=== PATIENT | male | born 1950 | race Caucasian/White ===

== ENCOUNTER 2016-08-23 10:11 | Emergency (ER) | payer OTHER ==
[2016-08-23 10:24] VITALS: RESP 18; TEMP 99
[2016-08-23] MEDS ORDERED: IBUPROFEN 600 MG TAB PO ONE (10:30)
--- NOTE | 2016-08-23 10:40 | EDPHY ---
HPI/HX/ROS/PE/MDM Narrative: CHIEF COMPLAINT: Fall, right shoulder HPI: The patient is a 66-year-old male with no significant past medical history. He is not on anticoagulants. Approximately 1 and 0.5 hours ago, while at work, patient slipped on a loose board while standing on the roof of a house he was building. This caused him to fall off of the roof. He partially arrested his fall by holding onto the gutter and a co-worker attempted to catch him. He fell primarily on his right back. He denies head injury or neck injury. He did not lose consciousness. EMS evaluated him at seen and he refused transport. He drove himself to the ER. He complains of pain to his right shoulder and right flank. He denies numbness, weakness, tingling, shortness of breath or extremity pain. REVIEW OF SYSTEMS: Aside from elements discussed in the HPI, a comprehensive 10-point review of systems was reviewed and is negative. PMH: None significant. SOCIAL HISTORY: Owns a construction business, denies alcohol or drug abuse. PHYSICAL EXAM: General:Patient is alert, in no acute distress. Head: Normocephalic, atraumatic. ENT:Eyes are normal to inspection. ENT inspection normal. Neck: Normal inspection. Full range of motion. Respiratory:No respiratory distress. Breath sounds normal bilaterally. Cardiovascular: Regular rate and rhythm. Strong peripheral pulses. Normal cap refill. Abdomen:The abdomen is nontender to palpation. There are no peritoneal signs. There are normal bowel sounds. Back: Small abrasion in the right flank is noted. No midline tenderness to palpation. No pain with palpation. Skin: Normal color. No rash. Warm and dry. Extremities: Diffuse tenderness in the right shoulder. No focal bony tenderness along the clavicle or humerus.Light touch sensation and motor function is preserved in the axillary, median, radial and ulnar nerve distributions. There is a 2+ radial pulse with brisk cap refill. Neuro: Oriented x3. Normal motor function. Normal sensory function. ED Course: I discussed treatment options with the patient. He was very hesitant to undergo a CT scan or blood work, so we proceeded with x-rays. While in Radiology, I was informed that the patient had what they described as a vasovagal episode in which he became diaphoretic, lightheaded and nearly passed out. On my examination at 11:07 a.m., the patient is back in his bed and is comfortable. He is denying any new source of pain. His vital signs are stable. Given this episode, I convinced the patient to allow us to proceed with blood work and CT scan of his chest, abdomen and pelvis. CT of the abdomen pelvis was read by Dr. Fontaine as positive for nondisplaced pubic ramus fracture as well as some surrounding hematoma without evidence of solid organ injury or spinal injury. MDM: This patient presents primarily with right shoulder as well as flank pain following a fall. CT of chest, abdomen and pelvis reveals a nondisplaced pubic ramus fracture and associated hematoma. There is no evidence of solid organ injury. On re-evaluation, the patient is comfortable, his exam is unchanged his vital signs remained normal. I think he is appropriate for outpatient management. I will prescribe him pain medicine and give him precautions. I explained to him that we do see some microscopic hematuria and that he will need to follow up with Urology for this, as well as Orthopedics for his nondisplaced pelvis fracture. - Data Points Imaging Results: Imaging Impressions Chest X-Ray 08/23/16 10:29 Impression: 1. No pneumonia. 2. Left upper lobe 5 mm nonspecific pulmonary nodule. Recommendation: CT chest. Findings and recommendations discussed with Emergency Department physician, Jesus Huitron MD at 1201 hour, 08/23/2016. Final report concurs with initial preliminary interpretation. Shoulder X-Ray 08/23/16 10:29 Impression: 1. Anatomically variation versus buckle fracture body of scapula. 2. No dislocation or AC separation. Lumbar Spine X-Ray 08/23/16 10:30 Impression: Scoliosis and spinal degenerative changes are seen without acute fracture identified.. Laboratory Results: Laboratory Results 08/23/16 11:20 08/23/16 08/23/16 08/23/16 12:00 11:20 11:20 WBC RBC Hgb POC Hgb Hct POC Hct MCV MCH MCHC RDW Plt Count MPV Neut % (Auto) Lymph % (Auto) [place] % (Auto) Eos % (Auto) Baso % (Auto) Nucleat RBC Rel Count Absolute Neuts (auto) Absolute Lymphs (auto) Absolute Monos (auto) Absolute Eos (auto) Absolute Basos (auto) Absolute Nucleated RBC Immature Gran % Immature Gran # PT 13.5 SEC SEC (12.0-15.0) INR 1.06 (0.83-1.16) APTT 28.9 SEC SEC (23.0-38.0) POC Sodium POC Potassium POC Chloride POC BUN POC Creatinine POC Glucose Troponin I < 0.012 ng/mL ng/mL (0-0.034) Urine RBC 5-10 /hpf H /hpf (0-3) Urine WBC 1-3 /hpf /hpf (0-3) Ur Epithelial Cells 1+ /lpf /lpf (NONE-1+) Urine Bacteria TRACE /hpf H /hpf (NONE SEEN) Urine Mucus 2+ /lpf H /lpf (NONE-1+) 08/23/16 08/23/16 11:20 11:08 WBC 8.75 10^3/uL 10^3/uL (3.80-9.50) RBC 4.99 10^6/uL 10^6/uL (4.40-6.38) Hgb 16.3 g/dL g/dL (13.7-17.5) POC Hgb 16.3 gm/dL gm/dL (13.7-17.5) Hct 45.3 % % (40.0-51.0) POC Hct 48 % % (40-51) MCV 90.8 fL fL (81.5-99.8) MCH 32.7 pg pg (27.9-34.1) MCHC 36.0 g/dL g/dL (32.4-36.7) RDW 12.3 % % (11.5-15.2) Plt Count 172 10^3/uL 10^3/uL (150-400) MPV 9.4 fL fL (8.7-11.7) Neut % (Auto) 79.7 % H % (39.3-74.2) Lymph % (Auto) 12.7 % L % (15.0-45.0) [place] % (Auto) 5.4 % % (4.5-13.0) Eos % (Auto) 0.7 % % (0.6-7.6) Baso % (Auto) 0.2 % L % (0.3-1.7) Nucleat RBC Rel Count 0.0 % % (0.0-0.2) Absolute Neuts (auto) 6.98 10^3/uL H 10^3/uL (1.70-6.50) Absolute Lymphs (auto) 1.11 10^3/uL 10^3/uL (1.00-3.00) Absolute Monos (auto) 0.47 10^3/uL 10^3/uL (0.30-0.80) Absolute Eos (auto) 0.06 10^3/uL 10^3/uL (0.03-0.40) Absolute Basos (auto) 0.02 10^3/uL 10^3/uL (0.02-0.10) Absolute Nucleated RBC 0.00 10^3/uL 10^3/uL (0-0.01) Immature Gran % 1.3 % H % (0.0-1.1) Immature Gran # 0.11 10^3/uL H 10^3/uL (0.00-0.10) PT INR APTT POC Sodium 141 mEq/L mEq/L (134-144) POC Potassium 4.1 mEq/L mEq/L (3.3-5.0) POC Chloride 106 mEq/L mEq/L (97-110) POC BUN 20 mg/dL mg/dL (7-23) POC Creatinine 1.1 mg/dL mg/dL (0.7-1.3) POC Glucose 126 mg/dL H mg/dL (70-100) Troponin I Urine RBC Urine WBC Ur Epithelial Cells Urine Bacteria Urine Mucus Medications Given: Discontinued Medications Sodium Chloride (Ns) 1,000 mls @ 0 mls/hr IV ONCE ONE; Wide Open PRN Reason: Protocol Stop: 08/23/16 11:06 Last Admin: 08/23/16 11:19 Dose: 1,000 mls Ibuprofen (Motrin) 600 mg PO EDNOW ONE Stop: 08/23/16 10:31 Last Admin: 08/23/16 10:59 Dose: 600 mg Point of Care Test Results: 08/23/16 11:08 POC Sodium 141 POC Potassium 4.1 POC Chloride 106 POC BUN 20 POC Creatinine 1.1 POC Glucose 126 H General Time Seen by Provider: 08/23/16 10:18 Initial Vital Signs: Initial Vital Signs Temperature (C) 37.2 C 08/23/16 10:21 Heart Rate 73 08/23/16 10:21 Respiratory Rate 18 08/23/16 10:21 Blood Pressure 152/62 H 08/23/16 10:21 O2 Sat (%) 93 08/23/16 10:21 O2 Delivery Mode Room Air Allergies/Adverse Reactions: Sulfa (Sulfonamide Antibiotics) Allergy (Verified 08/23/16 10:37) Home Medications: Medication Instructions Recorded oxyCODONE/APAP 5/325 [Percocet 1 - 2 tab PO Q4H PRN #15 tab 08/23/16 5/325 (*)] Departure - Departure Disposition: Home, Routine, Self-Care Clinical Impression: Pubic ramus fracture, Hematuria, microscopic Condition: Good Instructions: Pelvic Fracture (ED) Additional Instructions: rine,Follow-up with an orthopedist within 1 week for re-evaluation. You can walk, but try to take it easy. Use ibuprofen as directed for pain. Follow up with urologist to investigate blood in your urine within the next week. Return to the emergency department for severe pain, numbness, weakness, gross blood in urine, passing out or other concerns. Referrals: CHINYERE,UNKNOWN [Other] - As per Instructions David Meek MD [Medical Doctor] - As per Instructions Ismael Salazar MD [Medical Doctor] - As per Instructions Prescriptions: oxyCODONE/APAP 5/325 [Percocet 5/325 (*)] 1 - 2 tab PO Q4H PRN #15 tab PRN Reason: Pain, Severe
[2016-08-23] MEDS ORDERED: NS 1,000 ML IV ONE (11:05)
[2016-08-23 11:21] LABS: % IMMATURE GRANULYOCYTES 1.3 % (0.0-1.1); ABSOLUTE IMMATURE GRANULOCYTES 0.11 10^3/uL (0.00-0.10); ADD DIFF? NO; ADD MORPH? NO; ADD SCAN? NO; ATYPICAL LYMPHOCYTE FLAG 10 (0-99); FRAGMENT RBC FLAG 0 (0-99); HEMATOCRIT 45.3 % (40.0-51.0); HEMOGLOBIN 16.3 g/dL (13.7-17.5); LEFT SHIFT FLG 10 (0-99); LIPEMIA HEMOLYSIS FLAG 90 (0-99); MEAN CELL HEMOGLOBIN 32.7 pg (27.9-34.1); MEAN CELL VOLUME 90.8 fL (81.5-99.8); MEAN PLATELET VOLUME 9.4 fL (8.7-11.7); PLATELET CLUMPS FLAG 0 (0-99); PLATELET COUNT 172 10^3/uL (150-400); RED BLOOD CELL COUNT 4.99 10^6/uL (4.40-6.38); RED CELL DISTRIBUTION WIDTH 12.3 % (11.5-15.2)
[2016-08-23] MEDS ORDERED: IOPAMIDOL (ISOVUE-300) 100 ML BTL ONE (11:35)
[2016-08-23 11:38] LABS: INR 1.06 (0.83-1.16); PROTIME(PATIENT) 13.5 SEC (12.0-15.0)
[2016-08-23 11:39] LABS: APTT 28.9 SEC (23.0-38.0)
[2016-08-23 12:17] LABS: BACTERIA TRACE /hpf (NONE SEEN); MUCUS 2+ /lpf (NONE-1+)
[2016-08-23 13:08] VITALS: BP 145/62; PULSE 74; O2SAT 92
== END 2016-08-23 13:04 | disposition home or self-care (01) ==
LOC: CED 10:11
DX: S32.501A Unspecified fracture of right pubis, initial encounter for closed fracture (principal); R31.29 Other microscopic hematuria; E86.9 Volume depletion, unspecified; W13.2XXA Fall from, out of or through roof, initial encounter; Y92.69 Other specified industrial and construction area as the place of occurrence of the external cause
CPT/HCPCS: 71020-PO; 71260-PO; 72100-PO; 73030-PO; 74177-PO; 81015-PO; 82947-QW; 84484-PO; 85025-PO; 85610-PO; 85730-PO; A4565; Q9967

== ENCOUNTER → 2017-01-06 | Outpatient (CLI) | payer OTHER | LOC: FIMAGING 09:46 | PROVIDERS: ATTEND Physical Medicine & Rehabilitation | DX: M18.51 Other unilateral secondary osteoarthritis of first carpometacarpal joint, right hand (principal) ==